=== PATIENT | male | born 1990 ===

== ENCOUNTER 2017-05-06 18:16 | Emergency (ER) | payer OTHER ==
[~2017-05-06] VITALS: Ht 185.4 cm; Wt 95.5 kg
[2017-05-06] MEDS ORDERED: ONDANSETRON 4 MG INJ IV STA ×3 (18:30→23:10)
[2017-05-06] MEDS ORDERED: HYDROmorphONE 1 MG/ML SYG IV STA ×3 (18:30→23:10)
[2017-05-06] MEDS ORDERED: SOD CHLORIDE 0.9% 1,000 ML IV STA (18:30)
[2017-05-06 18:49] LABS: BASOPHILS % 0.3 % (0.0-2.0); EOSINOPHILS # 0.1 10^3/ul (0.0-0.5); EOSINOPHILS % 0.6 % (0.0-7.0); HEMATOCRIT 45.3 % (42.0-52.0); HEMOGLOBIN 14.8 g/dl (14.0-18.0); LYMPHOCYTES # 2.4 10^3/ul (0.8-2.9); MEAN CORPUSCULAR HEMOGLOBIN 28.6 pg (29.0-33.0); MEAN CORPUSCULAR HGB CONC 32.7 g/dl (32.0-37.0); MEAN CORPUSCULAR VOLUME 87.5 fl (82.0-101.0); MEAN PLATELET VOLUME 10.3 fl (7.4-10.4); MONOCYTE # 0.8 10^3/ul (0.3-0.9); MONOCYTES % 5.9 % (0.0-11.0); NEUTROPHIL # 10.6 10^3/ul (1.6-7.5); NEUTROPHILS % 75.6 % (39.0-77.0); PLATELET COUNT 274 10^3/UL (140-415); RED BLOOD COUNT 5.18 10^6/ul (4.70-6.10); RED CELL DISTRIBUTION WIDTH 13.2 % (11.5-14.5)
[2017-05-06 18:55] VITALS: Ht 185.4 cm; Wt 95.5 kg
[2017-05-06 19:13] LABS: INR 0.97
[2017-05-06 19:14] LABS: PARTIAL THROMBOPLASTIN TIME 25.3 Sec (25.0-35.0)
[2017-05-06] MEDS ORDERED: PROPOFOL 200 MG INJ IV STA (19:22)
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
[2017-05-06 19:42] LABS: ALANINE AMINOTRANSFERASE 53 IU/L (13-69); ALBUMIN 4.1 g/dl (3.3-4.9); ALBUMIN/GLOBULIN RATIO 1.41; ALKALINE PHOSPHATASE 62 IU/L (42-121); AMYLASE 78 U/L (11-123); ANION GAP 14 (8-16); ASPARTATE AMINO TRANSFERASE 64 IU/L (15-46); BILIRUBIN,INDIRECT 0.4 mg/dl (0-1.1); BILIRUBIN,TOTAL 0.4 mg/dl (0.2-1.3); BLOOD UREA NITROGEN 9 mg/dl (7-20); CALCIUM 8.9 mg/dl (8.4-10.2); CARBON DIOXIDE 28 mmol/L (21-31); CHLORIDE 104 mmol/L (97-110); GLUCOSE 103 mg/dl (70-220); POTASSIUM 3.5 mmol/L (3.5-5.1); SODIUM 142 mmol/L (135-144)
[2017-05-06 19:43] LABS: ACETAMINOPHEN < 10.0 ug/ml (10.0-30.0); ETHANOL < 10.0 mg/dl; SALICYLATE < 1.0 mg/dl (5.0-30.0)
[2017-05-06 19:53] LABS: TROPONIN-I 0.019 ng/ml (0.00-0.12)
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
[2017-05-06] MEDS ORDERED: IOHEXOL 300MG/ML 150 ML BTL ONE (22:17)
[2017-05-06] MEDS ORDERED: SOD CHLORIDE 0.9% 100 ML ONE (22:17)
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
--- NOTE | 2017-05-06 23:25 | RADRPT ---
PROCEDURE: CT Abdomen and Pelvis with contrast. CLINICAL INDICATION: Abdominal pain. TECHNIQUE: CT scan of the abdomen and pelvis with contrast was performed on a multi-detector high- resolution CT scanner. The patient was scanned following the uncomplicated intravenous administrati on of 100 cc of Omnipaque 300. Coronal and sagittal reformatted images were obtained from the axial source images. Images were reviewed on a high-resolution PACS workstation. The total exam CTDI equa ls 18.31 mGy and the total exam DLP equals 1141.8 mGy-cm. DICOM images are available. One or more of the following dose reduction techniques were used: Automated exposure control. Adjustment of the mA and/or kV according to patient size. Use of iterative reconstruction technique. COMPARISON: None. FINDINGS: CT abdomen: The lung bases are remarkable for mild bibasilar atelectasis. The heart size is normal, without per icardial thickening or effusion. The liver is normal in size and density without focal mass or intr ahepatic biliary dilatation. The spleen is normal in size and homogeneous in density. The stomach is partially collapsed, but is grossly unremarkable. The pancreas as visualized is normal. The gal lbladder is unremarkable. There is no evidence for biliary dilatation. The adrenal glands are symm etric and normal. The kidneys are symmetrically unremarkable as well. No renal calculus or obstruc tive uropathy or mass lesion is seen. The aorta is of normal caliber. There is no retroperitoneal lymphadenopathy. The dion hepatis roya on is clear. The bowel and mesentery, as visualized, are equally unremarkable. CT pelvis: The small bowel loops situated within the pelvis are unremarkable. The pelvic organs are normal. T he pelvic sidewalls and inguinal regions are clear. The sigmoid colon and rectum are unremarkable. No mass, lymphadenopathy, or free fluid is seen. No acute inflammation is seen. The bladder is no rmal. There is a comminuted and displaced fracture of the anterior and posterior column of the righ t acetabulum. There is posterior dislocation of the right femoral head. Large volume hemorrhage is s een in the joint space mild edema of the surrounding muscles. IMPRESSION: 1. No traumatic solid organ injury. 2. Comminuted displaced fracture of the right acetabulum with posterior dislocation of the right fe moral head. Large volume hemorrhage in the right hip joint. Mild swelling of the surrounding muscles . No evidence of active contrast extravasation in the pelvis to suggest arterial injury. RPTAT: HHO .Gui Rice MD, Date Time Electronically viewed and signed by .Gui Rice MD, MD on 05/06/2017 23:25 .O/
[2017-05-07] MEDS ORDERED: HYDROmorphONE 2 MG/ML SYG IV STA (00:39)
[2017-05-07] MEDS ORDERED: ONDANSETRON 4 MG INJ IV STA (00:39)
[2017-05-07 01:43] VITALS: BP 154/75; PULSE 84; RESP 18; TEMP 98.1
== END 2017-05-07 01:51 | disposition short-term general hospital (02) ==
LOC: E/R 18:16
DX: S73.004A Unspecified dislocation of right hip, initial encounter (principal); S32.401A Unspecified fracture of right acetabulum, initial encounter for closed fracture; S09.90XA Unspecified injury of head, initial encounter; F17.210 Nicotine dependence, cigarettes, uncomplicated; R06.02 Shortness of breath; R51 Headache; V43.52XA Car driver injured in collision with other type car in traffic accident, initial encounter
CPT/HCPCS: 27265; 70450; 71010; 72125; 72170; 73550; 74177; 80053; 80306; 82150; 83690; 84484; 85025; 85610; 85730; 94770; 96374; 96375; 96376; 99291; J1170; J2405; J7030; Q9967